=== PATIENT | female | born 1945 | race Caucasian/White ===

== ENCOUNTER 2016-07-13 09:48 | Outpatient (CLI) | payer MEDICARE, OTHER ==
[2016-07-13 12:23] LABS: #Basophils 0.1 thou/uL (0.0-0.2); #Eosinphils 0.2 thou/uL (0.0-0.7); #Lymphocytes 2.2 thou/uL (1.20-3.40); #Monocytes 0.7 thou/uL (0.11-0.59); %Eosinophils 2.2 % (0.0-10.0); %Lymphocytes 26.8 % (21.0-51.0); %Monocytes 8.2 % (0.0-10.0); Hematocrit 41.1 % (36.0-47.0); Red Blood Cell (RBC) Count 4.44 mill/uL (4.20-5.40); White Blood Cell (WBC) Count 8.1 thou/uL (4.8-10.8)
[2016-07-13 12:24] LABS: Bilirubin Negative (Negative); Blood, Urine Small (Negative); Glucose, Urine (Dipstick) Negative (Negative); Ketone, Urine Negative (Negative); Nitrite Negative (Negative); Protein, Urine (Dipstick) Negative (Neg-Trace); Urobilinogen 0.2 mg/dL (0.2-1.0)
[2016-07-13 12:37] LABS: Bacteria/HPF Rare-Few HPF (None Seen); RBC/HPF 0-3 HPF (0-3); Squamous Epithelial 0-3 HPF (0-3)
[2016-07-13 12:44] LABS: ALT (SGPT) 21 U/L (0-55); AST (SGOT) 19 U/L (5-34); Alkaline Phosphatase 70 U/L (40-150); Anion Gap 13 mmol/L (10-20); BUN (Urea Nitrogen) 17 mg/dL (9.8-20.1); Bilirubin, Total 0.6 mg/dL (0.2-1.2); Calc. Creatinine Clearance 0 mL/min (70-130); Calcium 8.9 mg/dL (7.8-10.44); Carbon Dioxide 31 mmol/L (23-31); Chloride 97 mmol/L (98-107); Estimated GFR-MDRD 68; Globulin 3.1 g/dL (2.4-3.5); LDL Cholesterol, Calculated 68 mg/dL
[2016-07-13 12:50] LABS: Hemoglobin A1c 6.6 % (4.0-6.0)
== END 2016-07-13 09:49 | disposition home or self-care (01) ==
LOC: NAVSJIPCSP 09:48
PROVIDERS: ATTEND Internal Medicine
DX: E11.51 Type 2 diabetes mellitus with diabetic peripheral angiopathy without gangrene (principal); E78.5 Hyperlipidemia, unspecified; I25.10 Atherosclerotic heart disease of native coronary artery without angina pectoris; I11.9 Hypertensive heart disease without heart failure; Z79.899 Other long term (current) drug therapy
CPT/HCPCS: 36415; 80053; 80061; 81003; 81015; 83036; 85025

== ENCOUNTER 2018-01-30 12:39 | Outpatient (CLI) | payer MEDICARE, OTHER ==
[2018-01-30 13:22] LABS: #Basophils 0.1 thou/uL (0.0-0.2); #Eosinphils 0.2 thou/uL (0.0-0.7); #Lymphocytes 1.4 thou/uL (1.20-3.40); #Monocytes 0.5 thou/uL (0.11-0.59); #Neutrophils 6.3 thou/uL (1.40-6.50); %Basophils 1.1 % (0.0-1.0); %Eosinophils 2.8 % (0.0-10.0); %Lymphocytes 16.4 % (21.0-51.0); %Monocytes 5.8 % (0.0-10.0); Hemoglobin 9.8 g/dL (12.0-16.0); Mean Corpuscular HGB CONC 31.4 g/dL (32.0-36.0); Mean Corpuscular Hemoglobin 26.8 pg (27.0-31.0); Mean Corpuscular Volume 85.5 fL (78.0-98.0); Mean Platelet Volume 6.7 fL (7.4-10.4); Platelet Count 222 thou/uL (130-400); RBC Distribution Width 14.8 % (11.5-14.5); Red Blood Cell (RBC) Count 3.64 mill/uL (4.20-5.40); White Blood Cell (WBC) Count 8.5 thou/uL (4.8-10.8)
[2018-01-30 13:36] LABS: Anion Gap 17 mmol/L (10-20); BUN (Urea Nitrogen) 19 mg/dL (9.8-20.1); Calc. Creatinine Clearance 0 mL/min (70-130); Calcium 7.2 mg/dL (7.8-10.44); Carbon Dioxide 28 mmol/L (23-31); Chloride 98 mmol/L (98-107); Estimated GFR-MDRD 43; Glucose 105 mg/dL (83-110); Potassium 4.3 mmol/L (3.5-5.1); Sodium 139 mmol/L (136-145)
== END 2018-01-30 12:40 | disposition home or self-care (01) ==
LOC: NAV LAB 12:39
PROVIDERS: ATTEND Family Medicine
DX: I11.9 Hypertensive heart disease without heart failure (principal); I50.9 Heart failure, unspecified; I48.2 Chronic atrial fibrillation; Z79.899 Other long term (current) drug therapy
CPT/HCPCS: 36415; 80048; 83880; 85025

== ENCOUNTER 2019-08-21 12:34 | Inpatient (IN) | payer MEDICARE, OTHER ==
[2019-08-21] MEDS ORDERED: Dextrose 50% Abboject 50 ML SYRINGE SLOW IVP PRN (13:18)
[2019-08-21] MEDS ORDERED: HumaLOG 300 UNITS/3 ML VIAL SC PRN ×2 (13:18)
[2019-08-21] MEDS ORDERED: Dextrose 5% in Water 1,000 ML IV PRN (13:18)
[2019-08-21] MEDS ORDERED: Polyethylene Glycol 3350 17 GM Packet PO PRN (13:19)
[2019-08-21] MEDS ORDERED: Acetaminophen 500 MG TAB PO PRN (13:19)
[2019-08-21] MEDS ORDERED: Guaifenesin DM 100-10/5 ML UDCUP PO PRN (13:20)
--- NOTE | 2019-08-21 13:46 | HP ---
CHIEF COMPLAINT: Significant deconditioning and exertional shortness of breath, has been in the hospital multiple times recently. BRIEF HISTORY: This is a very pleasant, 74-year-old, overweight, female, who is well known to me with history of congestive heart failure; atrial fibrillation, status post Watchman procedure recently; hypertension; dyslipidemia; and obstructive sleep apnea, who was in the hospital recently with hypotension. She apparently was diagnosed with anemia, but was not given any blood transfusion. She was discharged 2 days later, and while on her way home, she had episode of vomiting and abdominal pain and so turned around and went back to the ER and was admitted again. She apparently was told that she was in acute heart failure and after a couple of days was discharged to home. There is some confusion with her medications, and at home, apparently her blood pressure started going up into the 180s and 190s, so they saw her air support control officer, Dr. Vicente recently, who increased her carvedilol to 6.25 mg b.i.d., which again was not enough and family increased it to 12.5 mg. She is also taking valsartan 80 mg b.i.d. She is off her Entresto right now. She is taking her Lasix once a day. She apparently saw her motorcycle engine assembler, and her gabapentin dose was increased to 1 pill in the afternoon and 2 at night, but the patient states that she has been taking 1 in the morning, 1 in the afternoon, and 2 at night, but current prescription actually states to take 1 pill twice a day. She also had her Requip increase to 2 mg t.i.d. I advised the patient that for now, let us just stick with her current medication dosing per bottles, which will be that her gabapentin 1 pill twice a day as I advised her that the increase in gabapentin may be contributing to fluid retention and her worsening heart failure clinically. The patient is agreeable to be admitted to snf, where I can make medication changes as appropriate and also get her some much-needed therapy. Her daughter is in the room, and she is also in agreement. PAST MEDICAL HISTORY: 1. Hypertension. 2. Dyslipidemia. 3. Diabetes mellitus, type 2. 4. Restless legs syndrome. 5. Coronary artery disease. 6. Atrial fibrillation. 7. Chronic systolic congestive heart failure. 8. Anxiety and depression. 9. Obstructive sleep apnea. PAST SURGICAL HISTORY: 1. Watchman procedure. 2. Coronary angiogram and stent placement. 3. Coronary artery bypass grafting. 4. Cholecystectomy. 5. Bilateral knee surgery. 6. Right hand trigger finger release. ALLERGIES: 1. AZITHROMYCIN. 2. CODEINE SULFATE. 3. MORPHINE. FAMILY HISTORY: Noncontributory to current admission. PSYCHOSOCIAL HISTORY: Denies any tobacco, alcohol, or recreational drug abuse. Long-standing history of noncompliance with diet. Has good family support. REVIEW OF SYSTEMS: CARDIOVASCULAR: See history of presenting illness. RESPIRATORY: Occasional cough. Denies any hemoptysis. Denies any pleuritic-type chest pain. GASTROINTESTINAL: Denies any nausea, vomiting, diarrhea, constipation, hematemesis, melena, or hematochezia. GENITOURINARY: Denies any frequency, urgency, dysuria, or hematuria. CENTRAL NERVOUS SYSTEM: Denies any focal numbness, weakness, or fainting spells. She does have peripheral neuropathy and restless legs syndrome. HEENT: Denies any difficulty with speech, vision, hearing, or swallowing. SKIN: Denies any rash. PHYSICAL EXAMINATION: GENERAL: Very pleasant 74-year-old female, who is frustrated with her inability to do her activities of daily living and feeling fatigued all the time. She is resting comfortably. Her daughter is in the room. VITAL SIGNS: She is afebrile. Heart rate in the office is 72, respirations 18, blood pressure 121/70. HEENT: Normocephalic and atraumatic. Pupils equally reactive to light and accommodation. NECK: No JVD, thyromegaly, cervical lymphadenopathy, or throat exudates. No carotid bruits. CARDIOVASCULAR: S1 and S2 plus. RESPIRATORY: Normal vesicular breath sounds with decreased air entry in the bases and occasional crackles. ABDOMEN: Soft and nontender. Bowel sounds heard in all quadrants. EXTREMITIES: Without cyanosis or clubbing. Trace edema. CENTRAL NERVOUS SYSTEM: Awake and responsive. Cranial nerves 2 through 12 intact. Grossly nonfocal except for generalized weakness. IMPRESSION: 1. Significant deconditioning. 2. Chronic systolic congestive heart failure, possibly with exacerbation. 3. Diabetes mellitus, type 2. 4. Hypertension. 5. Dyslipidemia. 6. Obstructive sleep apnea. 7. Restless legs syndrome. 8. Peripheral neuropathy. 9. Osteoarthritis. 10. Anxiety and depression. PLAN: 1. Continue home medications. 2. 1800-calorie heart-healthy ADA diet. 3. Accu-Cheks with sliding scale coverage. 4. DVT prophylaxis with PlexiPulses. 5. Decubitus precautions. 6. Stress ulcer prophylaxis. 7. PT and OT eval and treat. 8. Stat BMP, BNP, CBC, and chest x-ray. 9. Oxygen if needed. 10. Routine laboratory values. 11. Advised daughter to bring her CPAP from home and the patient to be compliant with her CPAP. 12. Discussed with the patient and nursing in detail. All questions answered. Job ID: [id number]
[2019-08-21 14:29] LABS: Anion Gap 16 mmol/L (10-20); BUN (Urea Nitrogen) 17 mg/dL (9.8-20.1); Calc. Creatinine Clearance 57 mL/min (70-130); Calcium 6.7 mg/dL (7.8-10.44); Carbon Dioxide 27 mmol/L (23-31); Chloride 91 mmol/L (98-107); Estimated GFR-MDRD 42; Glucose 126 mg/dL (83-110); Potassium 3.2 mmol/L (3.5-5.1); Sodium 131 mmol/L (136-145)
[2019-08-21 14:38] LABS: #Eosinphils 0.1 thou/uL (0.0-0.7); #Lymphocytes 1.1 thou/uL (1.20-3.40); #Monocytes 0.5 thou/uL (0.11-0.59); #Neutrophils 7.9 thou/uL (1.40-6.50); %Basophils 0.4 % (0.0-1.0); %Eosinophils 0.5 % (0.0-10.0); %Lymphocytes 11.5 % (21.0-51.0); %Monocytes 5.4 % (0.0-10.0); %Neutrophils 82.1 % (42.0-75.0); Mean Corpuscular HGB CONC 31.3 g/dL (32.0-36.0); Mean Corpuscular Hemoglobin 22.5 pg (27.0-31.0); Mean Corpuscular Volume 71.9 fL (78.0-98.0); Platelet Count 251 thou/uL (130-400); White Blood Cell (WBC) Count 9.7 thou/uL (4.8-10.8)
--- NOTE | 2019-08-21 14:45 | RAD ---
EXAM: CHEST ONE VIEW HISTORY: CHF COMPARISON: 08/14/2016 FINDINGS: Triple lead left subclavian AICD device remains in place. Postsurgical changes related to median ster notomy are again seen with fracture of superior sternal wires again seen. The cardiac silhouette is in enlarged. Pulmonary vasculature is mildly increased. Suboptimal evaluation left lung base, but no definite consolidation or pleural fluid is appreciated bilaterally. Vascular calcifications are seen in the thoracic aorta. No other interval change. IMPRESSION: Evidence of mild CHF.
[2019-08-21] MEDS: rOPINIRole HCl 1 MG TAB PO SCH ×2 (14:51→20:39)
[2019-08-21] MEDS: Carvedilol 25 MG TAB PO SCH (20:38)
[2019-08-21] MEDS: Melatonin 3 MG TAB PO PRN (20:39)
[2019-08-21] MEDS: Valsartan 80 MG TAB PO SCH (20:39)
[2019-08-21] MEDS: Gabapentin 300 MG CAP PO SCH (20:39)
[2019-08-22] MEDS: Levothyroxine Sodium 100 MCG TAB PO SCH (05:28)
[2019-08-22] MEDS: Calcium Carbonate 600 MG + Vit D TAB PO SCH ×2 (08:15→16:20)
[2019-08-22] MEDS ORDERED: Potassium Chloride 20 MEQ TAB PO SCH (08:30)
--- NOTE | 2019-08-22 08:55 | PRG ---
DATE OF SERVICE: SUBJECTIVE: Ms. Mathis is up in the side of her bed. She just finished breakfast. She denies any questions or concerns. Denies any chest pain or shortness of breath. I informed her about her lab results and the need for some potassium supplementation as well as calcium. I advised her that the main thing she needs is therapy and to participate with it. She was compliant with her CPAP last night. OBJECTIVE: VITAL SIGNS: She is afebrile, heart rate 72, respirations 18, oxygen saturation 94% on room air, and blood pressure 163/83. CARDIOVASCULAR SYSTEM: S1 and S2 plus. RESPIRATORY SYSTEM: Normal vesicular breath sounds with decreased air entry in the bases. ABDOMEN: Soft, obese, nontender. Bowel sounds heard in all quadrants. EXTREMITIES: Without cyanosis or clubbing. Trace edema. CENTRAL NERVOUS SYSTEM: Generalized weakness, otherwise nonfocal. LABORATORY VALUES: Sodium 131, potassium 3.2, BUN and creatinine 17 and 1.25. Blood sugar Accu-Cheks are 169, 202, and 113, calcium is 6.7. BNP was 1718.2. White count 9.7, H and H 9 and 28.8 with microcytosis. IMPRESSION: 1. Acute on chronic systolic congestive heart failure. 2. Coronary artery disease. 3. Obstructive sleep apnea. 4. Depression and anxiety. 5. Microcytic anemia. 6. Atrial fibrillation, status post Watchman procedure. 7. Hypokalemia and hypocalcemia. 8. Significant deconditioning. 9. Diabetes mellitus, type 2. 10. Hypertension. 11. Dyslipidemia. PLAN: 1. Continue current medications. 2. 1800-calorie heart-healthy ADA diet. 3. Accu-Cheks with sliding scale coverage. 4. DVT prophylaxis with PlexiPulses. 5. Decubitus precautions. 6. Stress ulcer prophylaxis. 7. Replace potassium and calcium. 8. Reinforce compliance with CPAP. 9. PT/OT. 10. Routine laboratory values. Job ID: [id number]
[2019-08-22] MEDS: Alogliptin 25 MG TAB PO SCH (09:03)
[2019-08-22] MEDS: Valsartan 80 MG TAB PO SCH ×2 (09:04→21:25)
[2019-08-22] MEDS: Clopidogrel Bisulfate 75 MG TAB PO SCH (09:05)
[2019-08-22] MEDS: Gabapentin 300 MG CAP PO SCH ×2 (09:06→21:25)
[2019-08-22] MEDS: Furosemide 40 MG TAB PO SCH (09:06)
[2019-08-22] MEDS: Carvedilol 25 MG TAB PO SCH ×2 (09:07→21:25)
[2019-08-22] MEDS: Folic Acid 1 MG TAB PO SCH (09:07)
[2019-08-22] MEDS: Atorvastatin Calcium 40 MG TAB PO SCH (09:08)
[2019-08-22] MEDS: rOPINIRole HCl 1 MG TAB PO SCH ×3 (09:08→21:25)
[2019-08-22] MEDS: Aspirin 81 mg Enteric Coated Tablet PO SCH (09:09)
[2019-08-23] MEDS: Levothyroxine Sodium 100 MCG TAB PO SCH (05:53)
[2019-08-23 06:01] LABS: Anion Gap 15 mmol/L (10-20); BUN (Urea Nitrogen) 18 mg/dL (9.8-20.1); Calc. Creatinine Clearance 53 mL/min (70-130); Calcium 6.9 mg/dL (7.8-10.44); Carbon Dioxide 28 mmol/L (23-31); Chloride 95 mmol/L (98-107); Estimated GFR-MDRD 38; Glucose 99 mg/dL (83-110); Potassium 3.3 mmol/L (3.5-5.1); Sodium 135 mmol/L (136-145)
[2019-08-23] MEDS ORDERED: Potassium Chloride 20 MEQ TAB PO SCH (08:00)
[2019-08-23] MEDS: Calcium Carbonate 600 MG + Vit D TAB PO SCH ×2 (08:47→16:31)
[2019-08-23] MEDS: Carvedilol 25 MG TAB PO SCH ×2 (08:47→20:43)
[2019-08-23] MEDS: Valsartan 80 MG TAB PO SCH ×2 (08:47→20:44)
[2019-08-23] MEDS: Aspirin 81 mg Enteric Coated Tablet PO SCH (08:47)
[2019-08-23] MEDS: Atorvastatin Calcium 40 MG TAB PO SCH (08:49)
[2019-08-23] MEDS: rOPINIRole HCl 1 MG TAB PO SCH ×3 (08:49→20:44)
[2019-08-23] MEDS: Gabapentin 300 MG CAP PO SCH ×2 (08:49→20:44)
[2019-08-23] MEDS: Furosemide 40 MG TAB PO SCH (08:49)
[2019-08-23] MEDS: Folic Acid 1 MG TAB PO SCH (08:49)
[2019-08-23] MEDS: Clopidogrel Bisulfate 75 MG TAB PO SCH (08:49)
[2019-08-23] MEDS: Alogliptin 25 MG TAB PO SCH (08:50)
--- NOTE | 2019-08-23 16:13 | PRG ---
DATE OF SERVICE: 08/23/2019 SUBJECTIVE: Ms. Mathis is taking a nap. She is compliant with her CPAP. She denies any chest pain or shortness of breath. Denies any PND or orthopnea. Advised nursing to see if they can try walking her around the hallways a couple of times. OBJECTIVE: VITAL SIGNS: The patient is afebrile, heart rate 70, respirations 20, oxygen saturation 92% on room air, blood pressure 149/68. CARDIOVASCULAR: S1 and S2 plus. RESPIRATORY: Normal vesicular breath sounds. ABDOMEN: Soft, nontender. Bowel sounds heard in all quadrants. EXTREMITIES: Without cyanosis or clubbing. Trace edema. Peripheral pulses are palpable. CENTRAL NERVOUS SYSTEM: Awake and responsive. Generalized weakness, otherwise nonfocal. LABORATORY DATA: Sodium 135, potassium is still low at 3.3, BUN and creatinine are 18 and 1.34. Blood sugars are 172, 128, and 175. IMPRESSION: 1. Tgqot-in-lkycmua systolic congestive heart failure. 2. Coronary artery disease. 3. Atrial fibrillation. 4. Hyponatremia, which is improving. 5. Hypokalemia. 6. Diabetes mellitus, type 2. 7. Hypothyroidism. 8. Depression and anxiety. 9. Deconditioning. 10. Obstructive sleep apnea. PLAN: 1. Continue current medications. 2. Increase potassium replacement. 3. 1800 calorie heart healthy ADA diet. 4. Accu-Cheks with sliding scale coverage. 5. DVT prophylaxis with PlexiPulse. 6. Decubitus precaution. 7. Stress ulcer prophylaxis. 8. Physical therapy. 9. Routine laboratory values. Job ID: [id number]
[2019-08-23] MEDS: Potassium Chloride 20 MEQ TAB PO SCH (16:31)
[2019-08-23] MEDS: Melatonin 3 MG TAB PO PRN (22:52)
[2019-08-24] MEDS: Levothyroxine Sodium 100 MCG TAB PO SCH (05:49)
[2019-08-24] MEDS: Alogliptin 25 MG TAB PO SCH (08:12)
[2019-08-24] MEDS: Calcium Carbonate 600 MG + Vit D TAB PO SCH ×2 (08:12→15:40)
[2019-08-24] MEDS: Aspirin 81 mg Enteric Coated Tablet PO SCH (08:12)
[2019-08-24] MEDS: rOPINIRole HCl 1 MG TAB PO SCH ×3 (08:14→21:14)
[2019-08-24] MEDS: Atorvastatin Calcium 40 MG TAB PO SCH (08:14)
[2019-08-24] MEDS: Potassium Chloride 20 MEQ TAB PO SCH ×2 (08:14→15:40)
[2019-08-24] MEDS: Folic Acid 1 MG TAB PO SCH (08:14)
[2019-08-24] MEDS: Valsartan 80 MG TAB PO SCH ×2 (08:14→21:14)
[2019-08-24] MEDS: Gabapentin 300 MG CAP PO SCH ×2 (08:14→21:15)
[2019-08-24] MEDS: Furosemide 40 MG TAB PO SCH (08:15)
[2019-08-24] MEDS: Clopidogrel Bisulfate 75 MG TAB PO SCH (08:15)
[2019-08-24] MEDS: Carvedilol 25 MG TAB PO SCH ×2 (08:15→21:15)
--- NOTE | 2019-08-24 15:43 | PRG ---
DATE OF SERVICE: 08/24/2019 SUBJECTIVE: Ms. Mathis is sleeping, but arousable. She is compliant with her CPAP. She states that she feels good. She denies any questions or concerns. OBJECTIVE: VITAL SIGNS: She is afebrile, heart rate 70, respirations 18, oxygen saturation 94% on room air, blood pressure 148/68. CARDIOVASCULAR SYSTEM: S1-S2 plus. RESPIRATORY SYSTEM: Normal vesicular breath sounds. ABDOMEN: Soft. Nontender. Bowel sounds heard in all quadrants. EXTREMITIES: Without cyanosis or clubbing. IMPRESSION: 1. Improving acute on chronic systolic congestive heart failure. 2. Deconditioning. 3. Diabetes mellitus type 2. 4. Atrial fibrillation, status post Watchman procedure. 5. Depression and anxiety. 6. Obstructive sleep apnea. PLAN: 1. Continue current medications. 2. 1800 calorie heart healthy ADA diet. 3. Accu-Cheks with sliding scale coverage. 4. DVT prophylaxis with PlexiPulses. 5. Decubitus precautions. 6. Stress ulcer prophylaxis. 7. Reinforce compliance with CPAP. 8. PT/OT. 9. Routine laboratory values. Job ID: [id number]
[2019-08-24] MEDS: Melatonin 3 MG TAB PO PRN (21:14)
[2019-08-25 05:46] LABS: Anion Gap 16 mmol/L (10-20); BUN (Urea Nitrogen) 21 mg/dL (9.8-20.1); Calc. Creatinine Clearance 47 mL/min (70-130); Carbon Dioxide 28 mmol/L (23-31); Chloride 99 mmol/L (98-107); Estimated GFR-MDRD 34; Glucose 92 mg/dL (83-110); Potassium 4.5 mmol/L (3.5-5.1); Sodium 138 mmol/L (136-145)
[2019-08-25] MEDS: Levothyroxine Sodium 100 MCG TAB PO SCH (06:02)
[2019-08-25] MEDS: Atorvastatin Calcium 40 MG TAB PO SCH (08:14)
[2019-08-25] MEDS: Calcium Carbonate 600 MG + Vit D TAB PO SCH ×2 (08:15→16:30)
[2019-08-25] MEDS: Alogliptin 25 MG TAB PO SCH (08:16)
[2019-08-25] MEDS: Carvedilol 25 MG TAB PO SCH ×2 (08:16→20:48)
[2019-08-25] MEDS: Furosemide 40 MG TAB PO SCH (08:17)
[2019-08-25] MEDS: Folic Acid 1 MG TAB PO SCH (08:17)
[2019-08-25] MEDS: Potassium Chloride 20 MEQ TAB PO SCH ×2 (08:17→16:30)
[2019-08-25] MEDS: rOPINIRole HCl 1 MG TAB PO SCH ×3 (08:17→20:48)
[2019-08-25] MEDS: Clopidogrel Bisulfate 75 MG TAB PO SCH (08:18)
[2019-08-25] MEDS: Valsartan 80 MG TAB PO SCH ×2 (08:18→20:48)
[2019-08-25] MEDS: Gabapentin 300 MG CAP PO SCH ×2 (08:18→20:48)
[2019-08-25] MEDS: Aspirin 81 mg Enteric Coated Tablet PO SCH (08:19)
--- NOTE | 2019-08-25 13:08 | PRG ---
DATE OF SERVICE: 08/25/2019 SUBJECTIVE: Ms. Mathis is doing well. She is feeling better. She is apparently getting stronger with therapy. Denies any chest pain or shortness of breath. OBJECTIVE: VITAL SIGNS: She is afebrile, heart rate 69, respirations 20, oxygen saturation 93% on room air, blood pressure 143/68. CARDIOVASCULAR SYSTEM: S1 and S2 plus. RESPIRATORY SYSTEM: Normal vesicular breath sounds. ABDOMEN: Soft, nontender. Bowel sounds heard in all quadrants. EXTREMITIES: Without cyanosis or clubbing. CENTRAL NERVOUS SYSTEM: Improving deconditioning. LABORATORY VALUES: Sodium 138, potassium 4.5, BUN and creatinine are 21 and 1.48. Blood sugars are 153, 205, 92, and 136. IMPRESSION: 1. Chronic systolic congestive heart failure. 2. Improving deconditioning. 3. Coronary artery disease. 4. Atrial fibrillation, status post Watchman. 5. Diabetes mellitus, type 2. 6. Hypertension. 7. Dyslipidemia. 8. Obstructive sleep apnea. 9. Restless legs syndrome. 10. Depression and anxiety. PLAN: 1. Continue current medications. 2. 1800 calorie heart-healthy ADA diet. 3. Accu-Cheks with sliding scale coverage. 4. Monitor blood pressure and adjust medications as needed. 5. Physical therapy. 6. DVT prophylaxis with PlexiPulses. 7. Decubitus precautions. 8. Stress ulcer prophylaxis. 9. Routine laboratory values. 10. Discussed with the patient and the daughter in detail. All questions answered. Job ID: [id number]
[2019-08-25] MEDS: Melatonin 3 MG TAB PO PRN (20:48)
[2019-08-26] MEDS: Levothyroxine Sodium 100 MCG TAB PO SCH (05:58)
[2019-08-26] MEDS: Aspirin 81 mg Enteric Coated Tablet PO SCH (08:44)
[2019-08-26] MEDS: Calcium Carbonate 600 MG + Vit D TAB PO SCH ×2 (08:44→16:38)
[2019-08-26] MEDS: Gabapentin 300 MG CAP PO SCH ×2 (08:45→21:15)
[2019-08-26] MEDS: Carvedilol 25 MG TAB PO SCH ×2 (08:45→21:15)
[2019-08-26] MEDS: rOPINIRole HCl 1 MG TAB PO SCH ×3 (08:46→21:15)
[2019-08-26] MEDS: Valsartan 80 MG TAB PO SCH ×2 (08:46→21:15)
[2019-08-26] MEDS: Potassium Chloride 20 MEQ TAB PO SCH ×2 (08:46→16:38)
[2019-08-26] MEDS: Furosemide 40 MG TAB PO SCH (08:47)
[2019-08-26] MEDS: Clopidogrel Bisulfate 75 MG TAB PO SCH (08:47)
[2019-08-26] MEDS: Alogliptin 25 MG TAB PO SCH (08:48)
[2019-08-26] MEDS: Folic Acid 1 MG TAB PO SCH (11:06)
[2019-08-26] MEDS: Atorvastatin Calcium 40 MG TAB PO SCH (11:06)
--- NOTE | 2019-08-26 13:48 | PRG ---
DATE OF SERVICE: 08/26/2019 SUBJECTIVE: Ms. Mathis is doing well. She is taking a nap. She had her lunch. She apparently participated with therapy and is feeling stronger. I reviewed therapy notes from this morning and she walked about 130 feet. Continue to work with therapy and encouraged the patient. Her son is in the room, and no questions or concerns. OBJECTIVE: VITAL SIGNS: She is afebrile. Heart rate 70, respirations 20, oxygen saturation 93% on room air, and blood pressure was 153/82. CARDIOVASCULAR SYSTEM: S1 and S2 plus. RESPIRATORY SYSTEM: Normal vesicular breath sounds. ABDOMEN: Soft and nontender. Bowel sounds heard in all quadrants. EXTREMITIES: Without cyanosis or clubbing. LABORATORY DATA: Shows blood sugar of 136, 137, 186, 111, and 146. IMPRESSION: 1. Diabetes mellitus, type 2. 2. Hypertension. 3. Dyslipidemia. 4. Coronary artery disease. 5. Atrial fibrillation. 6. Chronic systolic congestive heart failure. 7. Restless leg syndrome. 8. Obstructive sleep apnea. 9. Improving deconditioning. PLAN: 1. Continue current medications. 2. An 1800-calorie heart healthy ADA diet. 3. Accu-Cheks with sliding scale coverage. 4. DVT prophylaxis with PlexiPulse. 5. Decubitus precautions. 6. Stress ulcer prophylaxis. 7. Physical therapy. 8. Routine laboratory values. Job ID: [id number]
[2019-08-26] MEDS: Melatonin 3 MG TAB PO PRN (21:14)
[2019-08-27] MEDS: Levothyroxine Sodium 100 MCG TAB PO SCH (06:14)
[2019-08-27 06:23] VITALS: BMI 34.4
[2019-08-27] MEDS: Aspirin 81 mg Enteric Coated Tablet PO SCH (08:39)
[2019-08-27] MEDS: Calcium Carbonate 600 MG + Vit D TAB PO SCH ×2 (08:39→15:53)
[2019-08-27] MEDS: Clopidogrel Bisulfate 75 MG TAB PO SCH (08:40)
[2019-08-27] MEDS: Folic Acid 1 MG TAB PO SCH (08:40)
[2019-08-27] MEDS: rOPINIRole HCl 1 MG TAB PO SCH ×3 (08:40→20:01)
[2019-08-27] MEDS: Potassium Chloride 20 MEQ TAB PO SCH ×2 (08:40→15:53)
[2019-08-27] MEDS: Alogliptin 25 MG TAB PO SCH (08:40)
[2019-08-27] MEDS: Atorvastatin Calcium 40 MG TAB PO SCH (08:41)
[2019-08-27] MEDS: Valsartan 80 MG TAB PO SCH ×2 (08:41→20:00)
[2019-08-27] MEDS: Furosemide 40 MG TAB PO SCH (08:41)
[2019-08-27] MEDS: Carvedilol 25 MG TAB PO SCH ×2 (08:42→20:00)
[2019-08-27] MEDS: Gabapentin 300 MG CAP PO SCH ×2 (08:42→20:00)
--- NOTE | 2019-08-27 13:20 | PRG ---
DATE OF SERVICE: 08/27/2019 SUBJECTIVE: Ms. Mathis is doing well. Denies any complaints. Her daughter is in the room and is happy with her progress. I am anticipating she should be ready to be discharged sometime early next week. OBJECTIVE: VITAL SIGNS: She is afebrile. Heart rate 70, respirations 20, oxygen saturation 96% on room air, blood pressure 114/79. CARDIOVASCULAR: S1 and S2 plus. RESPIRATORY: Normal vesicular breath sounds. ABDOMEN: Soft and nontender. Bowel sounds heard in all quadrants. EXTREMITIES: Without cyanosis or clubbing. CENTRAL NERVOUS SYSTEM: Improving deconditioning. LABORATORY DATA: Blood sugars are 111, 146, 164, 145, and 127. IMPRESSION: 1. Chronic systolic congestive heart failure. 2. Coronary artery disease. 3. Hypertension. 4. Dyslipidemia. 5. Diabetes mellitus, type 2. 6. Peripheral neuropathy. 7. Restless legs syndrome. 8. Obstructive sleep apnea. 9. Atrial fibrillation, status post Watchman placement. PLAN: 1. Continue current medications. 2. 1800-calorie heart-healthy ADA diet. 3. Accu-Cheks with sliding scale coverage. 4. DVT prophylaxis with PlexiPulses. 5. Decubitus precautions. 6. Stress ulcer prophylaxis. 7. Reinforced compliance with CPAP. 8. Recheck BMP and CBC in the morning. 9. Physical therapy. 10. Discussed with the patient and daughter in detail. All questions answered. Job ID: [id number]
[2019-08-27] MEDS: Melatonin 3 MG TAB PO PRN (20:01)
[2019-08-28] MEDS: Levothyroxine Sodium 100 MCG TAB PO SCH (05:32)
[2019-08-28 05:42] LABS: Anion Gap 18 mmol/L (10-20); BUN (Urea Nitrogen) 24 mg/dL (9.8-20.1); Calc. Creatinine Clearance 47 mL/min (70-130); Calcium 6.7 mg/dL (7.8-10.44); Carbon Dioxide 25 mmol/L (23-31); Chloride 98 mmol/L (98-107); Estimated GFR-MDRD 34; Glucose 107 mg/dL (83-110); Potassium 4.4 mmol/L (3.5-5.1); Sodium 137 mmol/L (136-145)
[2019-08-28 05:55] LABS: #Eosinphils 0.1 thou/uL (0.0-0.7); #Lymphocytes 1.2 thou/uL (1.20-3.40); #Monocytes 0.5 thou/uL (0.11-0.59); #Neutrophils 6.1 thou/uL (1.40-6.50); %Basophils 0.6 % (0.0-1.0); %Eosinophils 1.7 % (0.0-10.0); %Lymphocytes 15.4 % (21.0-51.0); %Monocytes 6.1 % (0.0-10.0); %Neutrophils 76.2 % (42.0-75.0); Anisocytosis SLIGHT = 6-15 cells (100X) (0-5/hpf); Hemoglobin 8.8 g/dL (12.0-16.0); MDiff Complete? YES; Mean Corpuscular HGB CONC 31.4 g/dL (32.0-36.0); Mean Corpuscular Volume 73.1 fL (78.0-98.0); Mean Platelet Volume 6.7 fL (7.4-10.4); Ovalocytes SLIGHT = 2-5 cells (100X) (0-1/hpf); Platelet Count 188 thou/uL (130-400); Platelet Morphology Comment Appears Adequate; Poikilocytosis SLIGHT = 6-15 cells (100X) (0-5/hpf); RBC Distribution Width 18.7 % (11.5-14.5); Red Blood Cell (RBC) Count 3.82 mill/uL (4.20-5.40); Tear Drops SLIGHT = 2-5 cells (100X) (0-1/hpf)
[2019-08-28] MEDS: Aspirin 81 mg Enteric Coated Tablet PO SCH (08:55)
[2019-08-28] MEDS: Carvedilol 25 MG TAB PO SCH ×2 (08:56→21:17)
[2019-08-28] MEDS: Potassium Chloride 20 MEQ TAB PO SCH ×2 (08:56→17:21)
[2019-08-28] MEDS: Calcium Carbonate 600 MG + Vit D TAB PO SCH ×2 (08:56→17:21)
[2019-08-28] MEDS: Gabapentin 300 MG CAP PO SCH ×2 (08:56→21:17)
[2019-08-28] MEDS: Clopidogrel Bisulfate 75 MG TAB PO SCH (08:56)
[2019-08-28] MEDS: Valsartan 80 MG TAB PO SCH ×2 (08:56→21:17)
[2019-08-28] MEDS: Folic Acid 1 MG TAB PO SCH (08:56)
[2019-08-28] MEDS: Atorvastatin Calcium 40 MG TAB PO SCH (08:56)
[2019-08-28] MEDS: Alogliptin 25 MG TAB PO SCH (08:57)
[2019-08-28] MEDS: rOPINIRole HCl 1 MG TAB PO SCH ×3 (08:58→21:16)
[2019-08-28] MEDS: Furosemide 40 MG TAB PO SCH (08:58)
--- NOTE | 2019-08-28 13:21 | PRG ---
DATE OF SERVICE: 08/28/2019 SUBJECTIVE: Ms. Mathis is resting on the side of her bed. She is improving with therapy. She wants to go home, but I advised her that she still has not met her goals yet and this is the same issue in the past, where she goes home early than required and then she deteriorates. Her daughter is in the room and she agrees. OBJECTIVE: VITAL SIGNS: She is afebrile. Heart rate 70, respirations 20, oxygen saturation 96% on room air, blood pressure 135/98 this morning and with therapy, it was 144/67. CARDIOVASCULAR: S1, S2 plus. RESPIRATORY: Normal vesicular breath sounds. ABDOMEN: Soft, nontender. Bowel sounds heard in all quadrants. EXTREMITIES: Without cyanosis or clubbing. CENTRAL NERVOUS SYSTEM: Grossly nonfocal. She is walking better and therapy is hoping that she will be ready to go home soon. IMPRESSION: 1. Improving deconditioning. 2. Chronic systolic congestive heart failure. 3. Atrial fibrillation, status post Watchman. 4. Hypertension. 5. Dyslipidemia. 6. Diabetes mellitus type 2. 7. Obstructive sleep apnea. 8. Restless legs syndrome. 9. Peripheral neuropathy. 10. Depression and anxiety. PLAN: 1. Continue current medications. 2. 1800-calorie heart healthy ADA diet. 3. Accu-Cheks with sliding scale coverage. 4. DVT prophylaxis with PlexiPulses. 5. Decubitus precautions. 6. Stress ulcer prophylaxis. 7. Compliance with CPAP. 8. Physical therapy. LABORATORY DATA: Her white count was 8, H and H were 8.8 and 27.9. Sodium 137, potassium 4.4, BUN and creatinine were 24 and 1.49. Blood sugars were 127, 135, 182, 107, and 118. Job ID: [id number]
[2019-08-28] MEDS: Melatonin 3 MG TAB PO PRN (21:16)
[2019-08-29] MEDS: Levothyroxine Sodium 100 MCG TAB PO SCH (06:02)
[2019-08-29] MEDS: Gabapentin 300 MG CAP PO SCH (08:13)
[2019-08-29] MEDS: Aspirin 81 mg Enteric Coated Tablet PO SCH (08:13)
[2019-08-29] MEDS: Furosemide 40 MG TAB PO SCH (08:13)
[2019-08-29] MEDS: Atorvastatin Calcium 40 MG TAB PO SCH (08:13)
[2019-08-29] MEDS: Calcium Carbonate 600 MG + Vit D TAB PO SCH (08:14)
[2019-08-29] MEDS: Folic Acid 1 MG TAB PO SCH (08:14)
[2019-08-29] MEDS: Potassium Chloride 20 MEQ TAB PO SCH (08:14)
[2019-08-29] MEDS: Carvedilol 25 MG TAB PO SCH (08:14)
[2019-08-29] MEDS: Valsartan 80 MG TAB PO SCH (08:15)
[2019-08-29] MEDS: rOPINIRole HCl 1 MG TAB PO SCH (08:15)
[2019-08-29] MEDS: Alogliptin 25 MG TAB PO SCH (08:15)
[2019-08-29] MEDS: Clopidogrel Bisulfate 75 MG TAB PO SCH (08:15)
[2019-08-29 12:55] VITALS: TEMP 96.5
[2019-08-29 13:49] VITALS: BP 140/82
--- NOTE | 2019-08-30 03:43 | DIS ---
DATE OF ADMISSION: 08/21/2019 DATE OF DISCHARGE: 08/29/2019 PRINCIPAL DIAGNOSIS: Acute on chronic systolic congestive heart failure. SECONDARY DIAGNOSES: 1. Significant deconditioning. 2. Hypokalemia. 3. Coronary artery disease. 4. Atrial fibrillation. 5. Diabetes mellitus, type 2 with peripheral neuropathy. 6. Hypertension. 7. Dyslipidemia. 8. Obstructive sleep apnea. 9. Restless legs syndrome. 10. Depression and anxiety. COMPLICATIONS: None. ADVERSE REACTIONS: None. PROCEDURES: None. CONSULTATIONS: Physical Therapy and Occupational Therapy. HOSPITAL COURSE: The patient was seen in the office and was noticed to be significantly deconditioned and she did have decreased endurance and exertional shortness of breath. She was felt to be in acute on chronic systolic congestive heart failure. She was admitted to the hospital and laboratory values done, which showed hypokalemia. Her potassium was replaced and she was continued on her home medications. There was a suspicion that she may not have been taking her medications as prescribed. Her blood pressures have been stable. Her hemoglobin is low, but stable and she is on iron supplements. She has been improving with therapy and was deemed stable for discharge to home. She was advised to use her walker at home, but she knowing her will not use it. She has good family support and I have had extensive discussion with her daughter, who is going to make sure she gets her pillbox fixed up correctly and monitor her p.o. pill intake. She is to follow up in my office in 2 weeks. She is to call us with any questions or concerns. She does not want home health and I really do not think she needs home health. OBJECTIVE: VITAL SIGNS: She is afebrile. Heart rate 70, respirations 16, oxygen saturation 95% on room air, blood pressure 119/57. CARDIOVASCULAR: S1 and S2 plus. RESPIRATORY: Normal vesicular breath sounds. ABDOMEN: Soft and nontender. Bowel sounds heard in all quadrants. EXTREMITIES: Without cyanosis, clubbing, or edema. CENTRAL NERVOUS SYSTEM: Awake and responsive. Cranial nerves 2 through 12 intact. Much improved deconditioning. DISCHARGE MEDICATIONS: Same as admission, which is; 1. Aspirin 81 mg daily. 2. Plavix 75 mg daily. 3. Lipitor 40 mg daily. 4. Carvedilol 12.5 mg b.i.d. 5. Januvia 50 mg daily. 6. Folic acid 1 mg daily. 7. Lasix 40 mg daily. 8. Neurontin 300 mg b.i.d. 9. Levoxyl 100 mcg in the morning on an empty stomach. 10. Melatonin 9 mg at bedtime as needed. 11. Protonix 40 mg daily. 12. Potassium 20 mEq b.i.d., this is a new medication and I have sent a prescription to [facility] at [facility]. 13. Requip 1 mg t.i.d. 14. Zoloft 100 mg daily. 15. Valsartan 80 mg b.i.d. DIET: 1800-calorie heart-healthy ADA diet. She is to call me with any questions or concerns. Total time spent on this discharge, 35 minutes. Job ID: [id number]
== END 2019-08-29 12:40 | disposition home or self-care (01) | DRG 292 ==
LOC: NAV ACUTE 12:34
PROVIDERS: ADMIT Internal Medicine; ATTEND Internal Medicine
DX: I11.0 Hypertensive heart disease with heart failure (principal); E87.1 Hypo-osmolality and hyponatremia; I50.23 Acute on chronic systolic (congestive) heart failure; R53.81 Other malaise; E87.6 Hypokalemia; I25.10 Atherosclerotic heart disease of native coronary artery without angina pectoris; I48.91 Unspecified atrial fibrillation; E78.5 Hyperlipidemia, unspecified; G47.33 Obstructive sleep apnea (adult) (pediatric); D64.9 Anemia, unspecified; E11.42 Type 2 diabetes mellitus with diabetic polyneuropathy; G25.81 Restless legs syndrome; F32.9 Major depressive disorder, single episode, unspecified; E83.51 Hypocalcemia; F41.9 Anxiety disorder, unspecified; Z79.01 Long term (current) use of anticoagulants; Z79.4 Long term (current) use of insulin; Z90.49 Acquired absence of other specified parts of digestive tract; Z88.1 Allergy status to other antibiotic agents; Z88.8 Allergy status to other drugs, medicaments and biological substances
CPT/HCPCS: 36415; 36416; 71045; 80048; 83880; 85025

== ENCOUNTER 2019-10-27 19:12 | Inpatient (IN) | payer MEDICARE, OTHER ==
[2019-10-27] MEDS ORDERED: Albuterol 200 PUFF (6.7GM INHALER) INH PRN (20:48)
[2019-10-27] MEDS ORDERED: Artificial Tear Sol 15 ML BOT EA EYE PRN (20:55)
[2019-10-27] MEDS ORDERED: AMOXicillin 250 MG CAP PO SCH (21:00)
[2019-10-27] MEDS: Mometasone/Formoterol 60 PUFF AER INH SCH (21:00)
[2019-10-27] MEDS ORDERED: Dextrose 50% Abboject 50 ML SYRINGE IVP PRN (21:02)
[2019-10-27] MEDS ORDERED: Dextrose 5% in Water 1,000 ML IV PRN (21:02)
[2019-10-27] MEDS ORDERED: HumaLOG 300 UNITS/3 ML VIAL SC PRN (21:02)
[2019-10-28 01:44] VITALS: BMI 34.9
[2019-10-28] MEDS: Calcium Carbonate 500 MG TAB PER TUBE SCH ×5 (01:50→21:13)
[2019-10-28] MEDS: Mirtazapine 15 MG Soltab PO SCH ×2 (01:50→21:13)
[2019-10-28] MEDS: Aspirin 81 mg Enteric Coated Tablet PO SCH ×3 (01:51→21:21)
[2019-10-28] MEDS: Levothyroxine Sodium 100 MCG TAB PO SCH (05:29)
[2019-10-28] MEDS: Ipratropium Bromide 2.5 ml Neb NEB SCH ×4 (05:59→18:14)
[2019-10-28 06:06] LABS: ALT (SGPT) 32 U/L (8-55); AST (SGOT) 27 U/L (5-34); Albumin 3.3 g/dL (3.4-4.8); Alkaline Phosphatase 124 U/L (40-110); Anion Gap 16 mmol/L (10-20); BUN (Urea Nitrogen) 26 mg/dL (9.8-20.1); Calc. Creatinine Clearance 59 mL/min (70-130); Calcium 8.3 mg/dL (7.8-10.44); Carbon Dioxide 25 mmol/L (23-31); Chloride 104 mmol/L (98-107); Estimated GFR-MDRD 43; Globulin 3.4 g/dL (2.4-3.5); Glucose 170 mg/dL (83-110); Potassium 5.8 mmol/L (3.5-5.1); Protein, Total 6.7 g/dL (6.0-8.3); Sodium 139 mmol/L (136-145)
[2019-10-28 06:09] LABS: #Basophils 0.1 thou/uL (0.0-0.2); #Lymphocytes 0.5 thou/uL (1.20-3.40); #Monocytes 0.5 thou/uL (0.11-0.59); #Neutrophils 10.6 thou/uL (1.40-6.50); %Basophils 0.6 % (0.0-1.0); %Eosinophils 0.3 % (0.0-10.0); %Lymphocytes 4.2 % (21.0-51.0); %Monocytes 4.3 % (0.0-10.0); %Neutrophils 90.7 % (42.0-75.0); Anisocytosis SLIGHT = 6-15 cells (100X) (0-5/hpf); Hemoglobin 12.4 g/dL (12.0-16.0); Hypochromia MODERATE=16-30 cells (100X) (0-5/hpf); MDiff Complete? YES; Macrocytosis SLIGHT = 6-15 cells (100X) (0-5/hpf); Mean Corpuscular HGB CONC 28.9 g/dL (32.0-36.0); Mean Corpuscular Hemoglobin 29.6 pg (27.0-31.0); Mean Platelet Volume 11.7 fL (7.4-10.4); Platelet Count 110 thou/uL (130-400); Platelet Morphology Comment Appears Decreased; Poikilocytosis SLIGHT = 6-15 cells (100X) (0-5/hpf); Polychromasia SLIGHT = 2-3 cells (100X) (0-2/hpf); RBC Distribution Width 25.5 % (11.5-14.5); Red Blood Cell (RBC) Count 4.19 mill/uL (4.20-5.40); White Blood Cell (WBC) Count 11.7 thou/uL (4.8-10.8)
[2019-10-28] MEDS ORDERED: Calcium Carbonate 600 MG + Vit D TAB PO SCH (09:00)
[2019-10-28] MEDS: Carvedilol 25 MG TAB PER TUBE SCH ×2 (09:46→17:30)
[2019-10-28] MEDS: Folic Acid 1 MG TAB PER TUBE SCH (09:46)
[2019-10-28] MEDS: Mometasone/Formoterol 60 PUFF AER INH SCH ×2 (09:47→21:06)
[2019-10-28] MEDS: Clopidogrel Bisulfate 75 MG TAB PO SCH (09:47)
[2019-10-28] MEDS: Fish Oil 1,000 MG CAP PO SCH (09:47)
[2019-10-28] MEDS: HumaLOG 300 UNITS/3 ML VIAL SC PRN (13:08)
[2019-10-28] MEDS ORDERED: Sodium Chloride 0.9% 10 ML ONE (14:38)
[2019-10-28] MEDS: Vancomycin HCl 1 GM in Sodium Chloride 0.9% 250 ML 250 ML IVPB SCH (15:11)
[2019-10-28] MEDS ORDERED: Ipratropium Bromide 2.5 ml Neb ONE (18:05)
[2019-10-29] MEDS: Ipratropium Bromide 2.5 ml Neb NEB SCH ×5 (00:31→23:41)
[2019-10-29] MEDS: Nystatin Powder 15 GM BOT TOP SCH ×3 (00:32→21:38)
--- NOTE | 2019-10-29 00:56 | HP ---
PRINCIPAL DIAGNOSES: Enterococcal bacteremia, resolving sepsis, dysphagia requiring percutaneous endoscopic gastrostomy tube placement, and deconditioning for therapy. BRIEF HISTORY: This is a pleasant 74-year-old female, who is well known to me. She was admitted to [facility] with fatigue and was eventually diagnosed with enterococcal bacteremia and sepsis, as well as significant deconditioning and dysphagia requiring PEG tube placement. She was initially treated with vancomycin and was advised to switch to amoxicillin for 10 days. Unfortunately, patient is allergic to Augmentin and so we will continue vancomycin for another 3 days for a total of 10 days and she has had 6 days of vancomycin there. We will have her here for 4 more days. The patient is able to recognize me. She has a dry mouth. She has a very soft voice now due to weakness, but denies any concerns. She denies any chest pain or shortness of breath. She apparently did not use her CPAP last night, but it is fixed and nursing is going to make sure she is on it today. She apparently was diagnosed with hypercarbic respiratory failure there due to not using her CPAP. She is off her diuretics at present. PAST MEDICAL HISTORY: 1. Anemia likely due to GI bleed. They still saw multiple ulcers with eschar when they did the PEG tube this time. 2. Hypertension. 3. Dyslipidemia. 4. Diabetes mellitus type 2. 5. Restless legs syndrome. 6. Coronary artery disease. 7. Atrial fibrillation. 8. Chronic systolic congestive heart failure. 9. Anxiety and depression. 10. Obstructive sleep apnea. PAST SURGICAL HISTORY: 1. Watchman procedure. 2. Coronary angiogram and stent placement. 3. Coronary artery bypass grafting. 4. Cholecystectomy. 5. Bilateral knee surgery. 6. Right hand trigger finger release. ALLERGIES: 1. AZITHROMYCIN. 2. CODEINE SULFATE. 3. MORPHINE. 4. AUGMENTIN. FAMILY HISTORY: Noncontributory to current admission. PSYCHOSOCIAL HISTORY: No tobacco or alcohol or recreational drug abuse, long-standing history of noncompliance with diet. Has good family support. She lost her spouse recently. She lives alone, but her daughter lives nearby. She was active and independent prior to this admission. REVIEW OF SYSTEMS: CARDIOVASCULAR: Denies any chest pain, shortness of breath, palpitations, PND, orthopnea, pedal edema. RESPIRATORY: Denies any chronic cough, expectoration, or pleuritic-type chest pain. GASTROINTESTINAL: Denies any nausea, vomiting, diarrhea, constipation, hematemesis, melena, or hematochezia. She was noted to have dysphagia requiring PEG tube placement. GENITOURINARY: Denies any frequency, urgency, dysuria, hematuria. CENTRAL NERVOUS SYSTEM: Denies any focal numbness, weakness, or fainting spells. EXTREMITIES: Does have generalized arthritis. HEENT: Denies any difficulty with hearing or vision. She did have dysphagia requiring PEG tube placement. SKIN: Denies any rash. PHYSICAL EXAMINATION: GENERAL: A pleasant 74-year-old female, who is resting in bed and denies any concerns. She shakes her head no. VITAL SIGNS: She is afebrile. Heart rate 69, respirations 20, oxygen saturation 97% on room air, blood pressure 123/58. HEENT: Normocephalic and atraumatic. Pupils equally reacting to light and accommodation. NECK: No JVD, thyromegaly, cervical lymphadenopathy or throat exudates. No carotid bruits. CARDIOVASCULAR: S1, S2 plus. Irregularly irregular. RESPIRATORY: Normal vesicular breath sounds with decreased air entry in the bases. ABDOMEN: Soft, obese, nontender. Bowel sounds heard in all quadrants. PEG tube site is healthy. EXTREMITIES: Without cyanosis, clubbing. Trace edema. CENTRAL NERVOUS SYSTEM: Awake and responsive. Grossly nonfocal other than generalized weakness. LABORATORY VALUES: Show a white count of 8, H and H are 8.8 and 27.9. Sodium 137, potassium 4.4, BUN and creatinine are 24 and 1.49. Blood sugars are 118, 105, 178, 95, and 118. IMPRESSION: 1. Chronic systolic congestive heart failure. 2. Resolving enterococcal bacteremia. 3. Atrial fibrillation. 4. Diabetes mellitus type 2. 5. Hypothyroidism. 6. Hypertension. 7. Restless legs syndrome. 8. Obstructive sleep apnea. 9. Acute hypoxemic respiratory failure. 10. Deconditioning. 11. Dysphagia. PLAN: 1. Continue current medications. 2. Glucerna via PEG tube with aspiration precautions. 3. PT, OT, ST eval and treat. 4. Accu-Cheks with sliding scale coverage. 5. DVT prophylaxis with PlexiPulses. 6. Decubitus precaution. 7. Stress ulcer prophylaxis. 8. Monitor respiratory status and titrate oxygen. 9. Routine laboratory values. 10. Monitor hemoglobin. 11. Discussed with the patient and daughter as well as nursing in detail. 12. Reinforce compliance with CPAP at night. Job ID: [id number]
[2019-10-29] MEDS: Vancomycin HCl 1 GM in Sodium Chloride 0.9% 250 ML 250 ML IVPB SCH ×2 (02:41→14:49)
[2019-10-29] MEDS ORDERED: Ipratropium Bromide 2.5 ml Neb ONE ×2 (05:08→18:13)
[2019-10-29] MEDS: Levothyroxine Sodium 100 MCG TAB PO SCH (05:56)
[2019-10-29] MEDS: Fish Oil 1,000 MG CAP PO SCH (08:45)
[2019-10-29] MEDS: Carvedilol 25 MG TAB PER TUBE SCH ×2 (08:45→18:01)
[2019-10-29] MEDS: Mometasone/Formoterol 60 PUFF AER INH SCH ×2 (08:46→21:47)
[2019-10-29] MEDS: Aspirin 81 mg Enteric Coated Tablet PO SCH ×2 (08:46→21:48)
[2019-10-29] MEDS: Folic Acid 1 MG TAB PER TUBE SCH (08:46)
[2019-10-29] MEDS: Calcium Carbonate 500 MG TAB PER TUBE SCH ×4 (08:46→21:38)
[2019-10-29] MEDS: Clopidogrel Bisulfate 75 MG TAB PO SCH (08:46)
--- NOTE | 2019-10-29 13:16 | PRG ---
DATE OF SERVICE: 10/29/2019 SUBJECTIVE: Ms. Mathis is resting in bed. She escorted all the way down, where she is pretty much horizontal. I advised nursing to get her pulled back up and make sure they keep the head on the bed at 30 degrees at all times. I also asked them to make sure Dietary calculates her nutritional needs and adjust rate on her tube feeding. OBJECTIVE: VITAL SIGNS: I still do not see any vitals documented from this morning. Her oxygen saturation is 92% on 2 L. Her last nights blood pressure was 145/85. CARDIOVASCULAR SYSTEM: S1 and S2 plus. RESPIRATORY SYSTEM: Normal vesicular breath sounds. ABDOMEN: Soft and nontender. PEG tube site is healthy. EXTREMITIES: Without cyanosis or clubbing. CENTRAL NERVOUS SYSTEM: Significant weakness. IMPRESSION: 1. Enterococcal bacteremia. 2. Dysphagia requiring percutaneous endoscopic gastrostomy tube placement. 3. Obstructive sleep apnea on continuous positive airway pressure. 4. Acute hypercarbic respiratory failure. 5. Atrial fibrillation, status post Watchman procedure. 6. Chronic systolic congestive heart failure. 7. Restless legs syndrome. PLAN: 1. Continue current medications. 2. Nutritional support. 3. DVT and stress ulcer prophylaxis. 4. Decubitus precautions. 5. PEG tube care. 6. Aspiration precaution. 7. PT/OT/ST eval and treat. 8. Discussed with the patient in detail and all questions answered. No family at bedside. Job ID: [id number]
[2019-10-29 14:40] LABS: Vancomycin, Trough 22.2 ug/mL
[2019-10-29] MEDS ORDERED: Sodium Chloride 0.9% 10 ML ONE (16:17)
[2019-10-29] MEDS ORDERED: Ipratropium Bromide 2.5 ml Neb NEB SCH ×3 (18:15→23:59)
[2019-10-29] MEDS: Mirtazapine 15 MG Soltab PO SCH (21:38)
[2019-10-30] MEDS: Levothyroxine Sodium 100 MCG TAB PO SCH (06:52)
[2019-10-30] MEDS: Ipratropium Bromide 2.5 ml Neb NEB SCH ×4 (06:52→23:27)
[2019-10-30] MEDS: HumaLOG 300 UNITS/3 ML VIAL SC PRN (06:53)
[2019-10-30] MEDS: Fish Oil 1,000 MG CAP PO SCH (08:52)
[2019-10-30] MEDS: Folic Acid 1 MG TAB PER TUBE SCH (08:53)
[2019-10-30] MEDS: Calcium Carbonate 500 MG TAB PER TUBE SCH ×4 (08:53→20:42)
[2019-10-30] MEDS: Carvedilol 25 MG TAB PER TUBE SCH ×2 (08:53→17:52)
[2019-10-30] MEDS: Clopidogrel Bisulfate 75 MG TAB PO SCH (08:53)
[2019-10-30] MEDS: Aspirin 81 mg Enteric Coated Tablet PO SCH ×2 (08:54→20:42)
[2019-10-30] MEDS: Nystatin Powder 15 GM BOT TOP SCH ×2 (08:54→20:44)
[2019-10-30] MEDS: Mometasone/Formoterol 60 PUFF AER INH SCH ×2 (09:01→20:43)
--- NOTE | 2019-10-30 14:50 | PRG ---
DATE OF SERVICE: 10/30/2019 SUBJECTIVE: Ms. Mathis is sitting up in her wheelchair. She was evaluated by Speech Therapy, and I have given the okay to start VitalStim. The patient apparently pulled her IV out and it has been replaced. I advised her to try to not miss with that as she needs the IV antibiotics until the end of Sunday. OBJECTIVE: VITAL SIGNS: The patient is afebrile, heart rate 70, respirations 20, oxygen saturation 98% on 2 L, and blood pressure 145/74. CARDIOVASCULAR: S1 and S2 plus. RESPIRATORY: Normal vesicular breath sounds. ABDOMEN: Soft, nontender. Bowel sounds heard all quadrants. PEG tube site is healthy. EXTREMITIES: Without cyanosis or clubbing. CENTRAL NERVOUS SYSTEM: Grossly nonfocal except generalized weakness. LABORATORY DATA: Blood sugars are 112, 116, 168, and 113. IMPRESSION: 1. Enterococcal bacteremia. 2. Dysphagia, requiring PEG tube placement. 3. Chronic systolic congestive heart failure. 4. Restless legs syndrome. 5. Obstructive sleep apnea. 6. Acute hypercarbic respiratory failure. 7. Significant deconditioning. 8. Atrial fibrillation, status post Watchman. PLAN: 1. Continue current medications. 2. 1800 calorie heart healthy ADA diet once she is cleared for p.o. intake, but for now Glucerna tube feeds. Dietary to calculate volume. 3. Accu-Cheks with sliding scale coverage. 4. Aspiration precautions. 5. Continue IV vancomycin until the . 6. Physical therapy, occupational therapy and speech therapy. 7. PEG tube care. 8. Nocturnal CPAP. 9. Discussed with the patient in detail. All questions answered. Job ID: [id number]
[2019-10-30] MEDS ORDERED: Vancomycin HCl 750 MG in Sodium Chloride 0.9% 250 ML 250 ML IVPB SCH ×2 (15:00→16:00)
[2019-10-30] MEDS: Vancomycin 1.5 GRAM/300 ML BAG 1.5 GM in Premix Bag 1 BAG IVPB SCH (15:18)
[2019-10-30] MEDS: Mirtazapine 15 MG Soltab PO SCH (20:42)
[2019-10-30] MEDS: Pantoprazole 40 MG GRANULES PACKET PER TUBE SCH (20:51)
[2019-10-31] MEDS: Ipratropium Bromide 2.5 ml Neb NEB SCH ×4 (05:12→23:06)
[2019-10-31] MEDS: Levothyroxine Sodium 100 MCG TAB PO SCH (05:12)
[2019-10-31] MEDS: HumaLOG 300 UNITS/3 ML VIAL SC PRN (05:23)
[2019-10-31] MEDS: Mometasone/Formoterol 60 PUFF AER INH SCH ×2 (10:03→21:36)
[2019-10-31] MEDS: Nystatin Powder 15 GM BOT TOP SCH ×2 (10:04→21:42)
[2019-10-31] MEDS: Fish Oil 1,000 MG CAP PO SCH (10:04)
[2019-10-31] MEDS: Calcium Carbonate 500 MG TAB PER TUBE SCH ×4 (10:05→21:39)
[2019-10-31] MEDS: Clopidogrel Bisulfate 75 MG TAB PO SCH (10:06)
[2019-10-31] MEDS: Pantoprazole 40 MG GRANULES PACKET PER TUBE SCH ×2 (10:06→21:39)
[2019-10-31] MEDS: Carvedilol 25 MG TAB PER TUBE SCH ×2 (10:06→17:35)
[2019-10-31] MEDS: Aspirin 81 mg Enteric Coated Tablet PO SCH ×2 (10:06→21:39)
[2019-10-31] MEDS: Folic Acid 1 MG TAB PER TUBE SCH (10:06)
--- NOTE | 2019-10-31 10:24 | PRG ---
DATE OF SERVICE: 10/31/2019 SUBJECTIVE: Ms. Mathis is resting in bed. She is breathing through her mouth. She does have oxygen via nasal cannula. She apparently was not very compliant with her CPAP last night. She is tolerating her feedings. Her vitals are stable. OBJECTIVE: VITAL SIGNS: She is afebrile. Heart rate 87; respirations 22; oxygen saturation 98% on 2 L last night, this morning it is 92% on 2 L. CARDIOVASCULAR: S1 and S2 plus. RESPIRATORY: Normal vesicular breath sounds. ABDOMEN: Soft, nontender. Bowel sounds heard in all quadrants. PEG tube site is healthy. EXTREMITIES: Without cyanosis or clubbing. No edema. CENTRAL NERVOUS SYSTEM: Generalized weakness. LABORATORY DATA: Blood sugars are 113, 151, 155, and 208. IMPRESSION: 1. Chronic systolic congestive heart failure. 2. Enterococcal bacteremia. 3. Acute hypercarbic respiratory failure per old records. 4. Obstructive sleep apnea. 5. Restless legs syndrome. 6. Diabetes mellitus type 2. 7. Hypertension. 8. Dyslipidemia. 9. Peripheral neuropathy. PLAN: 1. Continue current medications. 2. Nutritional support and aspiration precautions. 3. Change her to face mask as she is mouth breathing and oxygen via nasal cannula is not really doing anything. 4. Reinforce complaints with CPAP. 5. Check BMP and CBC tomorrow. 6. Continue tube feeding. 7. Therapy. Job ID: [id number]
[2019-10-31] MEDS ORDERED: Sodium Chloride 0.9% 10 ML ONE (15:03)
[2019-10-31] MEDS: Vancomycin 1.5 GRAM/300 ML BAG 1.5 GM in Premix Bag 1 BAG IVPB SCH (15:16)
[2019-10-31 20:26] VITALS: BP 119/71; TEMP 95.9
[2019-10-31] MEDS: Mirtazapine 15 MG Soltab PO SCH (21:39)
[2019-10-31] MEDS ORDERED: Ondansetron PF 4 MG/2 ML Vial IVP PRN (22:04)
[2019-10-31] MEDS ORDERED: Ondansetron ODT 4 MG TAB PER TUBE PRN (22:04)
[2019-11-01] MEDS ORDERED: Sodium Chloride 0.9% 1,000 ML ONE (04:35)
--- NOTE | 2019-11-01 07:20 | DIS ---
DATE OF ADMISSION: 10/27/2019 DATE OF DISCHARGE: 11/01/2019 DATE OF : 11/01/2019. PRINCIPAL DIAGNOSIS: Cardiorespiratory failure. SECONDARY DIAGNOSES: 1. Chronic systolic congestive heart failure. 2. Atrial fibrillation. 3. Diabetes mellitus, type 2. 4. Hypertension. 5. Dyslipidemia. 6. Restless legs syndrome. 7. Anxiety and depression. 8. Obstructive sleep apnea. 9. History of gastrointestinal bleed with peptic ulcer. 10. Dysphagia requiring PEG tube placement. 11. Enterococcal bacteremia. COMPLICATIONS: None. ADVERSE REACTIONS: None. PROCEDURES: None. CONSULTATIONS: PT and OT and Speech Therapy. HOSPITAL COURSE: The patient was admitted as a transfer from [facility] where she was admitted with fatigue and was diagnosed with enterococcal bacteremia and sepsis. She also was noted to be significantly deconditioned and had dysphagia requiring PEG tube placement. She was on vancomycin and was switched to amoxicillin when she came here. She was noted to be allergic to amoxicillin, so she was continued on vancomycin. Her last dose was supposed to be end of today. She apparently was doing well except last night, she did have an episode of nausea and was given Zofran. She has not been very compliant with CPAP and was encouraged to keep it on. When the nurses checked on her at 2:00 a.m., she apparently was sleeping with her CPAP on and when they went back to check on her at 4:00 a.m., they found her to be not breathing. Carrie rosales was called. Rhythm on the monitor was asystole and unfortunately, the patient did not recover despite ACLS protocol. The patient was pronounced at 5:01 a.m. by the ER physician. Here on 5:01 a.m., I talked to her daughter, who is the next of kin and she answered all her questions. She did not want an autopsy. The body was released to the [facility]. For full details, please see chart. Job ID: [id number]
--- NOTE | 2019-11-03 09:07 | PQF ---
Shyla Mathis POLLACHI MD c [id number] CLINICAL DOCUMENTATION CLARIFICATION FORM: POST DISCHARGE Addendum to original discharge summary date: ____ Late entry note date: __ DATE: 11/03/2019 ATTN: JOSE LUIS LOWERY MD Please exercise your independent, professional judgment in responding to the clarification form. Clinical indicators are provided on the bottom of this form for your review Please check appropriate box(s): [ x ] Paroxysmal Atrial Fibrillation [ ] Persistent Atrial Fibrillation [ ] Chronic Atrial Fibrillation (includes permanent Atrial Fibrillation) [ ] Post-Operative Complication - Atrial Fibrillation [ ] Paroxysmal Atrial Fibrillation [ ] Persistent Atrial Fibrillation [ ] Other diagnosis [ ] Unable to determine For continuity of documentation, please document condition throughout progress notes and discharge summary. Thank You. CLINICAL INDICATORS - SIGNS / SYMPTOMS / LABS - Atrial fibrillation- DS, 10/31, JOSE LUIS LOWERY MD - Atrial fibrillation, status post Watchman procedure-Progress note, 10/28, JOSE LUIS LOWERY MD - MIKI- -Progress note, 10/28, JOSE LUIS LOWERY MD - Pulse: 79 on 10/26, 70 on 10/30- Vital signs RISKS FACTORS - Cardiorespiratory failure-DS, 10/31, JOSE LUIS LOWERY MD - Chronic systolic CHF-DS, 10/31BEVERLEY POLLACHI MD TREATMENTS: - Aspirin.PO-AUG, 10/26 - Coreg 25mg-AUG, 10/27 (This form is maintained as a part of the permanent medical record) 2014 [employer]. All Rights Reserved [email or web address]
== END 2019-11-01 06:00 | disposition expired | DRG 871 ==
LOC: NAV ACUTE 19:12
PROVIDERS: ADMIT Internal Medicine; ATTEND Internal Medicine
DX: A41.81 Sepsis due to Enterococcus (principal); J96.01 Acute respiratory failure with hypoxia; J96.02 Acute respiratory failure with hypercapnia; I50.22 Chronic systolic (congestive) heart failure; R53.81 Other malaise; I11.0 Hypertensive heart disease with heart failure; E78.5 Hyperlipidemia, unspecified; G25.81 Restless legs syndrome; F41.9 Anxiety disorder, unspecified; F32.9 Major depressive disorder, single episode, unspecified; G47.33 Obstructive sleep apnea (adult) (pediatric); R13.10 Dysphagia, unspecified; E03.9 Hypothyroidism, unspecified; I46.9 Cardiac arrest, cause unspecified; R47.02 Dysphasia; I48.0 Paroxysmal atrial fibrillation; E11.42 Type 2 diabetes mellitus with diabetic polyneuropathy; D50.0 Iron deficiency anemia secondary to blood loss (chronic); R11.0 Nausea; Z79.01 Long term (current) use of anticoagulants; Z87.11 Personal history of peptic ulcer disease; Z93.1 Gastrostomy status; Z88.0 Allergy status to penicillin; Z88.8 Allergy status to other drugs, medicaments and biological substances; Z95.1 Presence of aortocoronary bypass graft; Z90.49 Acquired absence of other specified parts of digestive tract; Z95.5 Presence of coronary angioplasty implant and graft; Z79.4 Long term (current) use of insulin
CPT/HCPCS: 36416; 80053; 80202; 85025; 36415-59; J2405; J3370; J7050